=== PATIENT | female | born 1985 | race Caucasian/White ===

== ENCOUNTER 2024-10-13 14:49 | Emergency (ER) | payer BC ==
[2024-10-13] MEDS: Diphtheria,Pertussis(Acell),Tetanus Vaccine 0.5 ML Syringe IM ONE (15:03)
[2024-10-13 15:57] VITALS: BP 106/65; PULSE 75
== END 2024-10-13 15:57 | disposition home or self-care (01) ==
LOC: MW.ED 14:49
DX: S61.511A Laceration without foreign body of right wrist, initial encounter (principal); S51.812A Laceration without foreign body of left forearm, initial encounter; Z23 Encounter for immunization; Z75.3 Unavailability and inaccessibility of health-care facilities; W18.39XA Other fall on same level, initial encounter; Y93.89 Activity, other specified
CPT/HCPCS: 12002; 90471; 99282; J2003; 99283